=== PATIENT | male | born 1990 | race Caucasian/White ===

== ENCOUNTER → 2019-12-14 | Outpatient (CLI) | payer OTHER ==
--- NOTE | 2019-12-14 09:24 | RADIOLOGY REPORT (SQ) ---
EXAM DESCRIPTION: DUPLEX ART/EDITA FLOW COMPLETE IMAGES COMPLETED DATE/TIME: 12/14/2019 7:39 am REASON FOR STUDY: HTN (I10) I10 ESSENTIAL (PRIMARY) HYPERTENSION COMPARISON: None. TECHNIQUE: Realtime and static grayscale images acquired. Selected color Doppler, velocities and spe ctral images recorded. LIMITATIONS: None. FINDINGS: RIGHT KIDNEY: RENAL ARTERY VELOCITIES: Origin: Nonvisualized. Mid: 36 Cm/sec. Hilum: 94 Cm/sec. Segmental a rtery velocity 50 cm/sec. RENAL VEIN: Color doppler flow present, patent. VELOCITY RATIO: 0.61. Normal waveforms. KIDNEY: Normal size measuring 10.4 cm. No significant pathology. LEFT KIDNEY: RENAL ARTERY VELOCITIES: Origin: Nonvisualized. Mid: Nonvisualized. Hilum: 121 Cm/sec. Segmenta l artery velocity 45 cm/sec. RENAL VEIN: Color doppler flow present, patent. VELOCITY RATIO: 0.55. Normal waveforms. KIDNEY: Normal size measuring 10.2 cm. No significant pathology. BLADDER: Normal. OTHER: Borderline enlarged prostate with calcifications. IMPRESSION: No Doppler evidence of hemodynamically significant renal artery stenosis. Borderline enlarged prostate, partially visualized. COMMENT: NORMAL RENAL ARTERY/AORTA VELOCITY RATIO IS LESS THAN OR EQUAL TO 3.5. TECHNICAL DOCUMENTATION: JOB ID: [id number] 2010 [employer]- All Rights Reserved Reading location - IP/workstation name: [email or web address]
== END ==
LOC: RAD 06:43
PROVIDERS: ATTEND Internal Medicine Clinical Cardiac Electrophysiology
DX: I10 Essential (primary) hypertension (principal)
CPT/HCPCS: 93975